=== PATIENT | female | born 1985 | race Two or more races ===

== ENCOUNTER 2017-01-04 11:12 | Outpatient (CLI) | payer OTHER, MEDICAID | END 2017-01-04 11:13 | disposition home or self-care (01) | DX: D25.2 Subserosal leiomyoma of uterus (principal) ==

== ENCOUNTER 2018-10-21 09:35 | Outpatient (CLI) | payer MEDICAID ==
--- NOTE | 2018-10-21 12:16 | Ultrasound Report ---
Reason: LESS THAN 8 WEEKS GESTATION OF ,[facility] [place] Procedure Date: 10/21/2018 Accession Number: [id number] / [id number] Procedure: US - OB First Trimester CPT Code: FULL RESULT: EXAM: FIRST TRIMESTER OBSTETRIC ULTRASOUND (Less than 11 weeks) EXAM DATE: 10/21/2018 11:25 AM. CLINICAL HISTORY: Less than 8 weeks gestation of . LMP: 08/27/2018. COMPARISONS: PELVIC NON OB W/DOPPLER LTD 01/04/2017 11:44 AM. TECHNIQUE: Transabdominal and transvaginal ultrasound examination with static image documentation. CLINICAL DATES: EGA 7 weeks 6 days with KAREN 06/03/2019 based on last menstrual period. ASSESSMENT: Gestational Sac: Single intrauterine. Mean gestational sac diameter: 30.9 mm Embryo: CRL (crown-rump length) 12 mm = 7 weeks 3 days. Cardiac activity: 171 beats per minute. Yolk sac: 4.1 mm. Amniotic fluid: Not accurately assessed at this gestational age. Early placenta: Not visible at this gestational age. Other: No perigestational fluid collection demonstrated. MATERNAL STRUCTURES: Uterus: Anteverted. The largest fibroid on today's exam measuring up to 12.7 cm. Cervix: Closed. Right Ovary/Adnexa: The ovaries are not seen. Left Ovary/Adnexa: The ovary measures 3.1 x 1.7 x 2.7 cm, volume 74.4 cc. Unremarkable. Free Fluid: None. Other: None. IMPRESSION: 1. Single viable intrauterine at EGA 7 weeks 3 days with KAREN 06/06/2019 based on crown-rump length, which is concordant with clinical dates. 2. Assigned dating is KAREN 06/03/2019 based on last menstrual period. 3. Nonvisualization of the right ovary. RADIA
== END 2018-10-21 09:36 | disposition home or self-care (01) ==
LOC: DI 09:35
PROVIDERS: ATTEND Naturopath
DX: O34.11 Maternal care for benign tumor of corpus uteri, first trimester (principal); D25.9 Leiomyoma of uterus, unspecified; Z3A.01 Less than 8 weeks gestation of pregnancy
CPT/HCPCS: 76801

== ENCOUNTER 2020-05-17 09:52 | Outpatient (CLI) | payer BC ==
[2020-05-17 15:18] LABS: BASOPHILS % (AUTO) 0.3 %; EOSINOPHILS % (AUTO) 0.3 %; HGB - HEMOGLOBIN 13.4 g/dL (12.0-16.0); LYMPHOCYTES # (AUTO) 1.4 10^3/uL (1.5-3.5); LYMPHOCYTES % (AUTO) 24.2 %; MEAN CORPUSCULAR HEMOGLOBIN 29.9 pg (27.0-31.0); MEAN CORPUSCULAR HGB CONC 32.4 g/dL (32.0-36.0); MEAN CORPUSCULAR VOLUME 92.4 fL (81.0-99.0); MEAN PLATELET VOLUME 9.9 fL (7.9-10.8); MONOCYTES # (AUTO) 0.4 10^3/uL (0.0-1.0); MONOCYTES % (AUTO) 6.2 %; NEUTROPHILS # (AUTO) 4.1 10^3/uL (1.5-6.6); NEUTROPHILS % (AUTO) 68.7 %; PLT - PLATELET COUNT 282 10^3/uL (130-450); RED BLOOD COUNT 4.48 10^6/uL (4.20-5.40); RED CELL DISTRIBUTION WIDTH 12.6 % (12.0-15.0); WHITE BLOOD COUNT 5.9 x10^3/uL (4.8-10.8)
[2020-05-17 15:49] LABS: ALBUMIN 4.4 g/dL (3.2-5.5); ALBUMIN/GLOBULIN RATIO 1.4 (1.0-2.2); ALKALINE PHOSPHATASE 48 IU/L (42-121); ALT ALANINE AMINOTRANSFERASE 17 IU/L (10-60); AST ASPARTATE AMINOTRANSFERASE 14 IU/L (10-42); BILIRUBIN,TOTAL 0.7 mg/dL (0.2-1.0); BUN - BLOOD UREA NITROGEN 19 mg/dL (6-20); CALCIUM 8.5 mg/dL (8.5-10.3); CARBON DIOXIDE - CO2 25 mmol/L (21-32); CHLORIDE 104 mmol/L (101-111); CHOL/HDL RATIO 2.9 (<4.4); CHOLESTEROL 171 mg/dL; CREATININE 0.6 mg/dL (0.4-1.0); CRP HIGH SENSITIVITY 6.6 mg/L; GLUCOSE 89 mg/dL (70-100); HDL CHOLESTEROL 60 mg/dL; LDL CHOLESTEROL,CALCULATED 98 mg/dL; LDL/HDL RATIO 1.6 (<4.4); SODIUM 138 mmol/L (135-145); TOTAL PROTEIN 7.6 g/dL (6.7-8.2); VLDL CHOLESTEROL 13 mg/dL
[2020-05-17 15:54] LABS: THYROID STIMULATING HORMONE 1.63 uIU/mL (0.34-5.60)
[2020-05-17 15:56] LABS: FREE T3 3.59 pg/mL (2.5-3.9); FREE T4 (FREE THYROXINE) 0.7 ng/dL (0.58-1.64)
[2020-05-17 16:23] LABS: HB2 TOTAL 13.9 g/dL; HEMOGLOBIN A1C 0.51 g/dL; HEMOGLOBIN A1C % 5.5 % (4.6-6.2)
[2020-05-17 20:14] LABS: BILIRUBIN,URINE NEGATIVE (NEGATIVE); GLUCOSE, URINE (UA) NEGATIVE (NEGATIVE); KETONES,URINE (UA) NEGATIVE (NEGATIVE); LEUKOCYTE ESTERASE, URINE NEGATIVE (NEGATIVE); NITRITE,URINE NEGATIVE (NEGATIVE); OCCULT BLOOD,URINE LARGE (NEGATIVE); PROTEIN,URINE TRACE mg/dL (NEGATIVE); UROBILINOGEN,URINE 0.2 (NORMAL) E.U./dL (NORMAL)
[2020-05-17 20:23] LABS: BACTERIA,URINE Moderate /HPF (None Seen); CLARITY,URINE HAZY (CLEAR); RBC,URINE TNTC /HPF (0-5); SQUAMOUS EPITHELIAL CELL,UR FEW Squamous (<= Few)
== END 2020-05-17 09:53 | disposition home or self-care (01) ==
LOC: LAB.S 09:52
PROVIDERS: ATTEND Naturopath
DX: Z13.0 Encounter for screening for diseases of the blood and blood-forming organs and certain disorders involving the immune mechanism (principal); Z13.1 Encounter for screening for diabetes mellitus; Z13.21 Encounter for screening for nutritional disorder; Z13.220 Encounter for screening for lipoid disorders; Z13.6 Encounter for screening for cardiovascular disorders
CPT/HCPCS: 36415; 80053; 80061; 81001; 83036; 83721; 84439; 84443; 84481; 85025; 86141